=== PATIENT | male | born 1980 | race Caucasian/White ===

== ENCOUNTER 2018-03-04 15:21 | Outpatient (CLI) | payer OTHER ==
--- NOTE | 2018-03-04 17:18 | MRI ---
CERVICAL SPINE MRI WITHOUT CONTRAST: 03/04/18 HISTORY: Neck pain, radiating down the left arm causing finger numbness. COMPARISON: None. TECHNIQUE: Cervical spine MRI is performed without intravenous gadolinium administration. Multisequential, multi planar imaging is performed. FINDINGS: There is appropriate T1 marrow signal intensity of the cervical vertebra. Cervical spine vertebral lazarus dy height is maintained. There is no fracture. No significant STIR hyperintensity to suggest vertebra l body edema or ligamentous injury. The visualized brain parenchyma, cervicomedullary junction, cervical cord and the upper thoracic cord have normal size and signal intensity. C2-C3: No significant disc osteophyte complex. No significant central canal stenosis. Neural foramina are patent. C3-C4: No significant disc osteophyte complex. No significant central canal stenosis. Neural foramina are patent. C4-C5: No significant disc osteophyte complex. No significant central canal stenosis. Foramina are pa tent. C5-C6: There is a central/left paracentral disc bulge that abuts the thecal sac. There is no signific ant central canal stenosis. Right neural foramen is mildly narrowed. Left neural foramen is patent. C6-C7: No significant disc osteophyte complex. No significant central canal stenosis. Foramina are pa tent. C7-T1: No significant disc osteophyte complex. No significant central canal stenosis. Neural foramina are patent. IMPRESSION: Central/left paracentral disc osteophyte complex at C5-C6 without significant central canal stenosis or foraminal narrowing. POS: [facility]
== END 2018-03-04 15:22 | disposition home or self-care (01) ==
LOC: MRI 15:21
DX: M54.12 Radiculopathy, cervical region (principal); M48.02 Spinal stenosis, cervical region; M99.81 Other biomechanical lesions of cervical region
CPT/HCPCS: 72141